=== PATIENT | female | born 1940 | race Caucasian/White ===

== ENCOUNTER 2016-08-28 11:25 | Emergency (ER) | payer OTHER ==
--- NOTE | ~2016-08-28 | CR93 ---
[facility] A Service of [facility] RADIOLOGY TEXT RESULTS PATIENT: AGAPITO CHEEK LOCATION: [facility] : 44 UNIT #: [id number] AGE: [address]: Myla Tuttle SEX: F ORDER DR: [id number] [facility]. [place], [place] [address] [id number] E MR#: [id number] Acc #: [id number] NAME: AGAPITO CHEEK. : 1940 SEX: F STUDY DATE/TIME: 08/28/2016 11:00 UNIT: [facility] ROOM: STUDY DESCRIPTION: CR Elbow Min 3 Views Lt Attending Physician: Myla Tuttle Pa-C Ordering Physician: Myla Tuttle Pa-C Primary Care Physician: Khoa Venegas M.D. MEDICAL IMAGING REPORT This report is preliminary unless electronic signature is present EXAM Left elbow series, 08/28/2016 COMPARISON Right elbow series, 07/27/2009 HISTORY Pain in the left shoulder and elbow today post fall down the stairs. FINDINGS Three views of the left elbow were obtained. There is mild bony irregularity noted in the anterior aspect of the radial head close to the neck suspicious for a subtle nondisplaced fracture. It is noted only in one plane and it is nonspecific. No significant effusion is seen. There is no dislocation. IMPRESSION 1. Mild irregularity is noted along the anterior cortex of the radial head close to the neck in one view only. It is suspicious for a subtle nondisplaced fracture. Correlate clinically. 2. No dislocation. Dictated by... Cornelio North M.D. THIS IS AN ELECTRONICALLY VERIFIED REPORT Cornelio North M.D. at 08/29/2016 3:03 PM CPR/ghanshyam TD: 08/28/2016 15:24 JOB #: [id number] [facility] A Service of [facility] RADIOLOGY TEXT RESULTS PATIENT: AGAPITO CHEEK [id number] 44 UNIT #: [id number] AGE: [address]: Myla Tuttle SEX: F ORDER DR: MEDICAL IMAGING REPORT COPY
--- NOTE | ~2016-08-28 | CR229 ---
[facility] A Service of [facility] RADIOLOGY TEXT RESULTS PATIENT: AGAPITO CHEEK LOCATION: [facility] : 44 UNIT #: [id number] AGE: [address]: Myla Tuttle SEX: F ORDER DR: [id number] [facility] [address] [facility] [place], [place] [address] [id number] E MR#: [id number] Acc #: [id number] NAME: AGAPITO CHEEK. : 1940 SEX: F STUDY DATE/TIME: 08/28/2016 11:01 UNIT: [facility] ROOM: STUDY DESCRIPTION: CR Shoulder Min 2 View Lt Attending Physician: Myla Tuttle Pa-C Ordering Physician: Myla Tuttle Pa-C Primary Care Physician: Khoa Venegas M.D. MEDICAL IMAGING REPORT This report is preliminary unless electronic signature is present EXAM Left shoulder series dated 08/28/2016. COMPARISON Left shoulder series dated 12/25/2011. HISTORY Fell today with left shoulder pain. FINDINGS 3 views of the left shoulder were obtained. Postoperative changes are noted in the left shoulder involving the left glenohumeral and probably the left acromioclavicular joint also. Correlate with history. 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 Intact. No obvious acute displaced superimposed fracture or dislocation could be identified in the shoulder. Dictated by... Cornelio North M.D. THIS IS AN ELECTRONICALLY VERIFIED REPORT Cornelio North M.D. at 08/29/2016 3:03 PM CPR/cmm TD: 08/28/2016 15:19 JOB #: [id number] MEDICAL IMAGING REPORT COPY
[~2016-08-28 11:25] MED LIST: ACETAMINOPHEN PO; AMITIZA8 MCG PO; ARICEPT PO; ASPIRIN PO; BENADRYL PO; BENADRYL25 MG PO; BISACODYL5 MG PO; CELEXA PO; COLACE PO; CRESTOR PO; DICLOFENAC PO; FLEET ENEMA133 ML PR; KEFZOL2 GM INJ; LASIX PO; LASIX20 MG PO; LEXAPRO PO; LORTAB 7.5-5001 TAB PO; LOTENSIN HCT 201 TAB PO; LOVAZA1 G PO; LOVENOX40 MG/0.4 INJ; NAMENDA10 MG PO; PREVACID PO; PROTONIX PO; SPIRIVA18 MCG INH; VICODIN 5/500 T1 TAB PO; VITAMIN D 4001 UDTAB PO; VITAMIN D50000 UNIT PO; VITAMIN E400 UNI1 PO; [UNRECOGNIZED DRUG - OTHER]
== END 2016-08-28 11:55 | disposition home or self-care (01) ==
LOC: CFTX 11:25
DX: S52.125A Nondisplaced fracture of head of left radius, initial encounter for closed fracture (principal); I10 Essential (primary) hypertension; K21.9 Gastro-esophageal reflux disease without esophagitis; F03.90 Unspecified dementia, unspecified severity, without behavioral disturbance, psychotic disturbance, mood disturbance, and anxiety; Z79.82 Long term (current) use of aspirin; Z79.899 Other long term (current) drug therapy; W01.0XXA Fall on same level from slipping, tripping and stumbling without subsequent striking against object, initial encounter; Y92.009 Unspecified place in unspecified non-institutional (private) residence as the place of occurrence of the external cause
CPT/HCPCS: 73030; 73080; 99284